=== PATIENT | female | born 1990 | race Caucasian/White ===

== ENCOUNTER 2022-07-29 18:29 | Emergency (ER) | payer OTHER ==
[~2022-07-29] VITALS: Ht 172.7 cm; Wt 68.0 kg
[2022-07-29 18:36] VITALS: BP_SYST 127
[2022-07-29 19:15] VITALS: BP_SYST 127
== END 2022-07-29 19:15 ==
LOC: SED 18:29
DX: Z02.89 Encounter for other administrative examinations (principal); Z79.899 Other long term (current) drug therapy
CPT/HCPCS: 99283